=== PATIENT | female | born 1970 | race African-American/Black ===

== ENCOUNTER 2019-03-28 10:54 | Inpatient (IN) | payer OTHER ==
[2019-03-28 13:01] VITALS: BMI 41.7
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
[2019-03-28] MEDS ORDERED: MAGNESIUM CITRATE 300 ML BOTTLE PO PRN (14:39)
[2019-03-28] MEDS ORDERED: BISMUTH SUBSALICYLATE 262 MG/15 ML BTL PO PRN (14:39)
[2019-03-28] MEDS ORDERED: hydrOXYzine PAMOATE 25 MG CAPSULE (FP) PO PRN (14:39)
[2019-03-28] MEDS ORDERED: diazePAM 5 MG TABLET PO PRN (14:39)
[2019-03-28] MEDS ORDERED: MAG HYDROX/AL HYDROX/SIMETH 30 ML UNIT-DOSE CUP PO PRN (14:39)
[2019-03-28] MEDS ORDERED: METHOCARBAMOL 500 MG TABLET PO PRN (14:39)
[2019-03-28] MEDS ORDERED: IBUPROFEN 400 MG TABLET (FP) PO PRN (14:39)
[2019-03-28] MEDS ORDERED: MENTHOL/PHENOL 1 EACH UD MM PRN (14:39)
[2019-03-28] MEDS ORDERED: ACETAMINOPHEN 325 MG TABLET (FP) PO PRN ×2 (14:39)
[2019-03-28] MEDS ORDERED: MAGNESIUM HYDROX 2400MG/30ML ORAL SUSPENSION 30 ML CUP PO PRN (14:39)
[2019-03-28] MEDS ORDERED: ALBUTEROL SO4 0.083% IH SOL 2.5 MG/3 ML VIAL.NEB. NEB PRN (14:42)
[2019-03-28] MEDS ORDERED: diazePAM 5 MG TABLET PO ONE (15:55)
[2019-03-28] MEDS: ELVITEG/COB/EMTRI/TENOFO (STRIBILD) TABLET -NF PO SCH (17:49)
[2019-03-28] MEDS: THIAMINE HCL 100 MG TABLET (FP) PO SCH (22:05)
[2019-03-28] MEDS: diazePAM 5 MG TABLET PO SCH (22:05)
[2019-03-28] MEDS: MELATONIN 5 MG TABLETS PO PRN (22:05)
[2019-03-29] MEDS: diazePAM 5 MG TABLET PO SCH ×3 (05:35→22:24)
[2019-03-29] MEDS: ELVITEG/COB/EMTRI/TENOFO (STRIBILD) TABLET -NF PO SCH (10:38)
[2019-03-29] MEDS: PRENATAL VITAMINS W/ FOLIC ACID TABLET (FP) PO SCH (10:38)
[2019-03-29 11:05] LABS: ALBUMIN 2.8 g/dl (3.4-5.0); BILIRUBIN,TOTAL 0.9 mg/dL (0.2-1); BLOOD UREA NITROGEN 10.4 mg/dL (7-18); CREATININE 0.9 mg/dL (0.55-1.3); POTASSIUM 4.1 mmol/L (3.5-5.1); TOT PROT 6.3 g/dl (6.4-8.2)
[2019-03-29 11:52] LABS: HEMATOCRIT 37.8 % (32.4-45.2); HEMOGLOBIN 12.4 GM/dL (10.7-15.3); MCH 28.1 pg (25.7-33.7); MCHC 32.7 g/dl (32.0-36.0); MEAN CELL VOLUME 85.9 fl (80-96); MEAN PLT VOLUME 9.6 fl (7.5-11.1); RDW 14.5 % (11.6-15.6); WHITE BLOOD COUNT 5.6 K/mm3 (4.0-10.0)
--- NOTE | 2019-03-29 12:47 | PN ---
S CIWA - CIWA Score Nausea/Vomitin-No Nausea/No Vomiting Muscle Tremors: 3 Anxiety: 3 Agitation: 3 Paroxysmal Sweats: 2 Orientation: 0-Oriented Tacttile Disturbances: 0-None Auditory Disturbances: 0-None Visual Disturbances: 0-None Headache: 0-None Present CIWA-Ar Total Score: 11 S Progress Note (SOAP) Subjective: sweats chills last night body aches rash between by inner thighs Objective: 03/29/19 12:45 Vital Signs Temperature 98.2 F 03/29/19 09:41 Pulse Rate 88 03/29/19 09:41 Respiratory Rate 18 03/29/19 09:41 Blood Pressure 119/67 03/29/19 09:41 O2 Sat by Pulse Oximetry (%) Laboratory Tests 03/29/19 03/29/19 03/29/19 08:00 08:00 08:00 WBC 5.6 RBC 4.40 Hgb 12.4 Hct 37.8 MCV 85.9 MCH 28.1 MCHC 32.7 RDW 14.5 MPV 9.6 Sodium 140 Potassium 4.1 Chloride 107 Carbon Dioxide 28 Anion Gap 5 L BUN 10.4 Creatinine 0.9 Est GFR (CKD-EPI)AfAm 88.87 Est GFR (CKD-EPI)NonAf 76.68 Random Glucose 87 Calcium 8.0 L Total Bilirubin 0.9 AST 21 ALT 25 Alkaline Phosphatase 70 Total Protein 6.3 L Albumin 2.8 L RPR Titer Nonreactive labs noted aaox3 ambulating no acute distress Assessment: 03/29/19 12:46 withdrawal sx mild rash noted between inner thighs Plan: continue detox increase fluids nystatin cream ordered
[2019-03-29] MEDS: NYSTATIN 100,000 UNIT/GM TOPICAL CREAM 15 GM TUBE TP SCH ×2 (14:05→22:24)
[2019-03-29 17:59] LABS: PLATELET COUNT 297 K/MM3 (134-434)
[2019-03-29] MEDS: THIAMINE HCL 100 MG TABLET (FP) PO SCH (22:24)
[2019-03-29] MEDS: MELATONIN 5 MG TABLETS PO PRN (22:24)
[2019-03-30] MEDS: NYSTATIN 100,000 UNIT/GM TOPICAL CREAM 15 GM TUBE TP SCH ×2 (10:30→22:45)
[2019-03-30] MEDS: PRENATAL VITAMINS W/ FOLIC ACID TABLET (FP) PO SCH (10:30)
[2019-03-30] MEDS: diazePAM 5 MG TABLET PO SCH ×2 (10:30→22:45)
[2019-03-30] MEDS: ELVITEG/COB/EMTRI/TENOFO (STRIBILD) TABLET -NF PO SCH (10:30)
--- NOTE | 2019-03-30 15:48 | PN ---
S CIWA - CIWA Score Nausea/Vomitin-Mild Nausea/No Vomiting Muscle Tremors: 3 Anxiety: 3 Agitation: 3 Paroxysmal Sweats: 3 Orientation: 0-Oriented Tacttile Disturbances: 0-None Auditory Disturbances: 0-None Visual Disturbances: 0-None Headache: 0-None Present CIWA-Ar Total Score: 13 S Progress Note (SOAP) Subjective: Lots of sweating, tremor, nausea Objective: 03/30/19 15:44 Last Vital Signs Temp Pulse Resp BP Pulse Ox 98.1 F 98 H 16 124/93 03/30/19 14:00 03/30/19 14:00 03/30/19 14:00 03/30/19 14:00 Laboratory Tests 03/29/19 03/29/19 03/29/19 08:00 08:00 08:00 WBC 5.6 RBC 4.40 Hgb 12.4 Hct 37.8 MCV 85.9 MCH 28.1 MCHC 32.7 RDW 14.5 Plt Count 297 MPV 9.6 Sodium 140 Potassium 4.1 Chloride 107 Carbon Dioxide 28 Anion Gap 5 L BUN 10.4 Creatinine 0.9 Est GFR (CKD-EPI)AfAm 88.87 Est GFR (CKD-EPI)NonAf 76.68 Random Glucose 87 Calcium 8.0 L Total Bilirubin 0.9 AST 21 ALT 25 Alkaline Phosphatase 70 Total Protein 6.3 L Albumin 2.8 L RPR Titer Nonreactive Labs reviewed: serum calcium 8 Assessment: 03/30/19 15:46 Withdrawal symptoms Noted with hypocalcemia Plan: Continue detox Encouraged PO water intake Hold discharge until Sunday due to withdrawal symptoms Hypocalcemia: calcium carbonate 650mg PO bid (give while inpatient)
[2019-03-30] MEDS ORDERED: CALCIUM CARBONATE 650 MG TABLET PO SCH (22:00)
[2019-03-30] MEDS: MELATONIN 5 MG TABLETS PO PRN (22:46)
[2019-03-30] MEDS: THIAMINE HCL 100 MG TABLET (FP) PO SCH (22:47)
[2019-03-31] MEDS ORDERED: diazePAM 5 MG TABLET PO SCH (06:00)
--- NOTE | 2019-03-31 08:51 | DS ---
[facility] Detox Discharge Summary Admission Date: 03/28/19 Discharge Date: 03/31/19 - History Present History: Alcohol Dependence - Physical Exam Results Vital Signs: Vital Signs Temperature 97.7 F 03/31/19 06:48 Pulse Rate 81 03/31/19 06:48 Respiratory Rate 18 03/31/19 06:48 Blood Pressure 135/70 03/31/19 06:48 O2 Sat by Pulse Oximetry (%) - Treatment Hospital Course: Detox Protocol Followed, Detoxed Safely, Responded well, Discharged Condition Good, Rehab Referral Accepted - Medication Discharge Medications: Ambulatory Orders Elviteg/Cob/Emtri/Tenofo Disop [Stribild (Non-Formulary)] 1 tab PO DAILY - Diagnosis (1) Alcohol abuse Current Visit: Yes Status: Chronic (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 will go see her PCP)
[2019-03-31 09:21] VITALS: BP 135/61; PULSE 83; TEMP 98.8
[2019-03-31] MEDS: PRENATAL VITAMINS W/ FOLIC ACID TABLET (FP) PO SCH (09:27)
[2019-03-31] MEDS: NYSTATIN 100,000 UNIT/GM TOPICAL CREAM 15 GM TUBE TP SCH (09:28)
[2019-03-31] MEDS: ELVITEG/COB/EMTRI/TENOFO (STRIBILD) TABLET -NF PO SCH (09:28)
== END 2019-03-31 10:34 | disposition home or self-care (01) | DRG 897 ==
LOC: YASAS 10:54 → Y6N 15:36
PROVIDERS: ADMIT Surgery; ATTEND Surgery
PROC: HZ2ZZZZ Detoxification Services for Substance Abuse Treatment (ICD-10-PCS; principal; 2019-03-28)
DX: F10.230 Alcohol dependence with withdrawal, uncomplicated (principal); F15.10 Other stimulant abuse, uncomplicated; Z21 Asymptomatic human immunodeficiency virus [HIV] infection status; E83.51 Hypocalcemia; R21 Rash and other nonspecific skin eruption
CPT/HCPCS: 36415; 80053; 81025; 85027; 86593